=== PATIENT | female | born 1965 | race African-American/Black ===

== ENCOUNTER 2022-07-24 15:14 | Inpatient (IN) | payer OTHER, MEDICAID ==
[~2022-07-24] VITALS: Ht 165.1 cm; Wt 113.6 kg
[~2022-07-24 15:14] MED LIST: AMLO10TA80 PO; ASPI-1497 PO; LISI10TA26 PO; MULT-1146 PO
[2022-07-24] MEDS ORDERED: IPRATROPIUM/ALBUTEROL 0.5-3(2.5)MG/3ML NEB HHN ONE ×2 (15:30→18:30)
[2022-07-24] MEDS ORDERED: ASPIRIN 325MG EC TABLET PO ONE (15:30)
[2022-07-24] MEDS ORDERED: METHYLPREDNISOLONE SOD SUCC 125 MG/2 ML VIAL IV ONE (15:30)
[2022-07-24 15:52] LABS: CHLORIDE 101 mEq/L (98-107)
[2022-07-24 16:03] LABS: BASOPHILS % 0.6 % (0.0-2.0); EOSINOPHILS % 3.8 % (0.0-5.0); HEMATOCRIT. 39.2 % (36.0-48.0); HEMOGLOBIN. 12.2 g/dL (12.0-16.0); LYMPHOCYTES % 19.8 % (20.0-50.0); MEAN CORPUSCULAR HEMOGLOBIN 27.9 pg (28.0-32.0); MEAN CORPUSCULAR VOLUME 89.6 fL (81.0-99.0); MEAN PLATELET VOLUME 10.1 fl (7.4-10.4); MONOCYTES % 5.9 % (2.0-8.0); NEUTROPHILS % 69.9 % (40.0-76.0); PLATELET 296 x1000/uL (130-400); RED BLOOD CELL COUNT 4.38 mill/uL (4.2-5.4); RED CELL DISTRIBUTION WIDTH 15.5 % (11.6-14.6)
[2022-07-24] MEDS ORDERED: CEFTRIAXONE 1 G PREMIX 50 ML IV ONE (17:30)
[2022-07-24] MEDS ORDERED: MORPHINE SULFATE 2 MG/ML CPJ (NOT FOR IM USE) IV ONE (18:00)
[2022-07-24] MEDS ORDERED: ONDANSETRON HCL 4MG/2ML INJ IM ONE (18:00)
[2022-07-24 19:53] LABS: BG BASE EXCESS 6.3 mmol/L (-2.0-2.0); BG DEOXYHEMOGLOBIN 2.1 % (0.0-5.0); BG FRACTION INSPIRED OXYGEN 100; BG HCO3 ACT 35.5 mmol/L (22.0-26.0); BG METHEMOGLOBIN 0.4 % (0.0-1.5); BG OXYGEN SATURATION 97.9 % (92.0-98.5); BG OXYHEMOGLOBIN 96.5 % (94.0-97.0); BG PCO2 74.5 mmHg (35.0-45.0); BG PH 7.296 (7.350-7.450); BG PO2 111.2 mmHg (75.0-100.0); BG SAMPLE SITE RIGHT RADIAL; BG VENT MODE HIGH FLOW
[2022-07-24] MEDS ORDERED: IOHEXOL-350 100 ML BOTTLE ONE (20:06)
[2022-07-24] MEDS ORDERED: IPRATROPIUM/ALBUTEROL 0.5-3(2.5)MG/3ML NEB ONE (21:48)
[2022-07-24 22:20] VITALS: BP 150/90
[2022-07-25] VITALS: BP 133/79
[2022-07-25] MEDS ORDERED: IPRATROPIUM/ALBUTEROL 0.5-3(2.5)MG/3ML NEB HHN PRN (00:15)
[2022-07-25] MEDS ORDERED: CEFTRIAXONE 1 G PREMIX 50 ML IV SCH (00:15)
[2022-07-25] MEDS ORDERED: AZITHROMYCIN 500 MG in DEXT 5% WATER 250 ML IV SCH (00:15)
[2022-07-25] MEDS ORDERED: ONDANSETRON HCL 4MG/2ML INJ IV PRN (00:15)
[2022-07-25] MEDS ORDERED: ZOLPIDEM TARTRATE 5MG TABLET PO PRN (00:30)
[2022-07-25] MEDS ORDERED: IPRATROPIUM BROMIDE (0.02%) 0.5MG/2.5ML NEB HHN PRN (01:00)
[2022-07-25] MEDS ORDERED: ALBUTEROL (0.083%) 2.5MG/3ML NEB HHN PRN (01:00)
[2022-07-25 04:00] VITALS: BP 158/79
[2022-07-25] MEDS: METHYLPREDNISOLONE SOD SUCC 40 MG/ML VIAL IV SCH ×3 (05:21→17:12)
[2022-07-25] MEDS ORDERED: *PATIENT'S OWN MEDICATION STORAGE XX SCH (05:30)
[2022-07-25] MEDS: HYDROCODONE/ACETAMINOPHEN 5/325MG TABLET PO PRN ×2 (05:47→18:25)
[2022-07-25 07:55] LABS: BASOPHILS % 0.2 % (0.0-2.0); EOSINOPHILS % 0.1 % (0.0-5.0); HEMOGLOBIN. 11.6 g/dL (12.0-16.0); LYMPHOCYTES % 8.7 % (20.0-50.0); MEAN CORPUSCULAR HEMOGLOBIN 28.2 pg (28.0-32.0); MEAN CORPUSCULAR VOLUME 90.2 fL (81.0-99.0); MEAN PLATELET VOLUME 9.8 fl (7.4-10.4); MONOCYTES % 4.1 % (2.0-8.0); NEUTROPHILS % 86.9 % (40.0-76.0); PLATELET 279 x1000/uL (130-400); RED CELL DISTRIBUTION WIDTH 15.5 % (11.6-14.6)
[2022-07-25 08:00] VITALS: BP 145/79
[2022-07-25] MEDS: ENOXAPARIN 30MG/0.3ML SYR SUBCUT SCH ×2 (08:11→21:09)
[2022-07-25] MEDS: CEFTRIAXONE 1,000 MG in DEXTROSE 5% WATER 50 ML IV SCH (08:11)
[2022-07-25] MEDS: PANTOPRAZOLE SODIUM 40 MG/VIAL IV SCH (08:11)
[2022-07-25 08:25] LABS: BG CARBOXYHEMOGLOBIN 0.4 % (0.5-1.5); BG DEOXYHEMOGLOBIN 0.9 % (0.0-5.0); BG FRACTION INSPIRED OXYGEN 100; BG HCO3 ACT 31.2 mmol/L (22.0-26.0); BG METHEMOGLOBIN 0.1 % (0.0-1.5); BG OXYGEN SATURATION 99.1 % (92.0-98.5); BG OXYHEMOGLOBIN 98.6 % (94.0-97.0); BG PCO2 59.4 mmHg (35.0-45.0); BG PH 7.338 (7.350-7.450); BG PO2 180.5 mmHg (75.0-100.0); BG SAMPLE SITE RIGHT RADIAL; BG TOTAL HEMOGLOBIN 12.4 g/dL (12.0-18.0); BG VENT MODE HIGH FLOW
[2022-07-25 08:27] LABS: CHLORIDE 99 mEq/L (98-107)
[2022-07-25 08:42] LABS: HDL CHOLESTEROL 41 mg/dL (40-59); LDL CHOLESTEROL 143 mg/dL (5-100)
[2022-07-25] MEDS ORDERED: ENOXAPARIN 40MG/0.4ML SYR SUBCUT SCH (09:00)
[2022-07-25] MEDS: BUDESONIDE 0.5MG/2ML NEB HHN SCH ×2 (09:14→21:11)
[2022-07-25 12:00] VITALS: BP 140/71
[2022-07-25] MEDS ORDERED: IPRATROPIUM/ALBUTEROL 0.5-3(2.5)MG/3ML NEB HHN SCH (12:00)
[2022-07-25 16:00] VITALS: BP 143/75
[2022-07-25 17:23] LABS: CLARITY URINE CLEAR (CLEAR); COLOR URINE YELLOW (YELLOW); KETONES URINE NEGATIVE (NEGATIVE); LEUKOCYTE ESTERASE URINE NEGATIVE (NEGATIVE); NITRITE URINE NEGATIVE (NEGATIVE); OCCULT BLOOD URINE NEGATIVE (NEGATIVE); PH URINE 5.5 (4.5-8.0); PROTEIN URINE TRACE (NEGATIVE); SPECIFIC GRAVITY URINE 1.034 (1.005-1.030)
[2022-07-25 17:38] LABS: *AMPHETAMINES SCREEN URINE NEGATIVE (NEGATIVE); *BARBITURATES SCREEN URINE NEGATIVE (NEGATIVE); *BENZODIAZEPINES SCREEN URINE NEGATIVE (NEGATIVE); *COCAINE SCREEN URINE NEGATIVE (NEGATIVE); CANNABINOID URINE SCREEN NEGATIVE (NEGATIVE); METHADONE URINE SCREEN NEGATIVE (NEGATIVE); OPIATES URINE SCREEN PRESUMTIVE POSITIVE (NEGATIVE); PHENCYCLIDINE URINE SCREEN NEGATIVE (NEGATIVE)
[2022-07-25 20:00] VITALS: BP 144/82
[2022-07-25] MEDS: ALBUTEROL (0.083%) 2.5MG/3ML NEB HHN SCH (21:11)
[2022-07-25] MEDS: IPRATROPIUM BROMIDE (0.02%) 0.5MG/2.5ML NEB HHN SCH (21:11)
[2022-07-26] VITALS: BP 121/76
[2022-07-26] MEDS: METHYLPREDNISOLONE SOD SUCC 40 MG/ML VIAL IV SCH ×4 (00:11→17:07)
[2022-07-26] MEDS: ALBUTEROL (0.083%) 2.5MG/3ML NEB HHN SCH ×4 (03:38→20:46)
[2022-07-26] MEDS: IPRATROPIUM BROMIDE (0.02%) 0.5MG/2.5ML NEB HHN SCH ×4 (03:38→20:46)
[2022-07-26 08:00] VITALS: BP 130/81
[2022-07-26] MEDS: BUDESONIDE 0.5MG/2ML NEB HHN SCH ×2 (08:06→20:47)
[2022-07-26] MEDS: PANTOPRAZOLE SODIUM 40 MG/VIAL IV SCH (08:31)
[2022-07-26] MEDS: ENOXAPARIN 30MG/0.3ML SYR SUBCUT SCH ×2 (08:31→20:45)
[2022-07-26] MEDS: CEFTRIAXONE 1,000 MG in DEXTROSE 5% WATER 50 ML IV SCH (08:32)
[2022-07-26 12:00] VITALS: BP 134/58
[2022-07-26] MEDS ORDERED: NALOXONE HCL 0.4MG/ML VIAL IV PRN (14:00)
[2022-07-26] MEDS ORDERED: IBUPROFEN 400MG TABLET PO PRN (15:00)
[2022-07-26 16:00] VITALS: BP 139/78
[2022-07-26 20:00] VITALS: BP 137/72
[2022-07-27] VITALS: BP 124/59
[2022-07-27] MEDS: METHYLPREDNISOLONE SOD SUCC 40 MG/ML VIAL IV SCH ×4 (00:18→18:54)
[2022-07-27] MEDS: IPRATROPIUM BROMIDE (0.02%) 0.5MG/2.5ML NEB HHN SCH ×4 (01:50→21:05)
[2022-07-27] MEDS: ALBUTEROL (0.083%) 2.5MG/3ML NEB HHN SCH ×4 (01:50→21:05)
[2022-07-27] MEDS: HYDROCODONE/ACETAMINOPHEN 5/325MG TABLET PO PRN ×2 (02:26→16:18)
[2022-07-27 04:00] VITALS: BP 125/55
[2022-07-27 07:21] LABS: HEMATOCRIT. 33.9 % (36.0-48.0); HEMOGLOBIN. 10.8 g/dL (12.0-16.0); MEAN CORPUSCULAR HEMOGLOBIN 28.3 pg (28.0-32.0); MEAN CORPUSCULAR VOLUME 89.2 fL (81.0-99.0); PLATELET 251 x1000/uL (130-400)
[2022-07-27 07:47] LABS: CHLORIDE 98 mEq/L (98-107)
[2022-07-27] MEDS: CEFTRIAXONE 1,000 MG in DEXTROSE 5% WATER 50 ML IV SCH (09:32)
[2022-07-27] MEDS: FAMOTIDINE 20MG TABLET PO SCH ×2 (09:33→20:42)
[2022-07-27] MEDS: ENOXAPARIN 30MG/0.3ML SYR SUBCUT SCH ×2 (09:33→20:42)
[2022-07-27] MEDS: BUDESONIDE 0.5MG/2ML NEB HHN SCH ×2 (09:54→21:05)
[2022-07-27 12:00] VITALS: BP 133/83
[2022-07-27 12:43] LABS: PLATELET ESTIMATE NORMAL
[2022-07-27 16:00] VITALS: BP 160/86
[2022-07-27] MEDS: CLONIDINE 0.1MG TABLET PO PRN (16:21)
[2022-07-27 17:24] LABS: BG BASE EXCESS 6.8 mmol/L (-2.0-2.0); BG CARBOXYHEMOGLOBIN 0.5 % (0.5-1.5); BG FRACTION INSPIRED OXYGEN 60; BG HCO3 ACT 33.6 mmol/L (22.0-26.0); BG METHEMOGLOBIN 0.2 % (0.0-1.5); BG OXYHEMOGLOBIN 95.3 % (94.0-97.0); BG PCO2 58.3 mmHg (35.0-45.0); BG PH 7.378 (7.350-7.450); BG SAMPLE SITE RIGHT RADIAL; BG TOTAL HEMOGLOBIN 12.5 g/dL (12.0-18.0); BG VENT MODE HIGH FLOW
[2022-07-27 20:30] VITALS: BP 130/68
[2022-07-28] VITALS (7 sets, daily range): BP systolic 136–169; BP diastolic 64–84
[2022-07-28] MEDS: METHYLPREDNISOLONE SOD SUCC 40 MG/ML VIAL IV SCH ×4 (00:06→17:00)
[2022-07-28] MEDS: FAMOTIDINE 20MG TABLET PO SCH ×2 (09:03→20:43)
[2022-07-28] MEDS: CEFTRIAXONE 1,000 MG in DEXTROSE 5% WATER 50 ML IV SCH (09:03)
[2022-07-28] MEDS: ENOXAPARIN 30MG/0.3ML SYR SUBCUT SCH ×2 (09:04→20:43)
[2022-07-28] MEDS: ALBUTEROL (0.083%) 2.5MG/3ML NEB HHN SCH ×3 (09:12→21:57)
[2022-07-28] MEDS: IPRATROPIUM BROMIDE (0.02%) 0.5MG/2.5ML NEB HHN SCH ×3 (09:12→21:57)
[2022-07-28] MEDS: BUDESONIDE 0.5MG/2ML NEB HHN SCH (09:12)
[2022-07-28] MEDS: CLONIDINE 0.1MG TABLET PO PRN (20:43)
[2022-07-28] MEDS ORDERED: ATORVASTATIN CALCIUM 40MG TABLET PO SCH (21:00)
[2022-07-28] MEDS ORDERED: FLUT1DIS3 INH (22:03)
[2022-07-29] VITALS: BP 152/71
[2022-07-29] MEDS: ALBUTEROL (0.083%) 2.5MG/3ML NEB HHN SCH ×3 (03:13→14:14)
[2022-07-29] MEDS: IPRATROPIUM BROMIDE (0.02%) 0.5MG/2.5ML NEB HHN SCH ×3 (03:13→14:14)
[2022-07-29 04:00] VITALS: BP 149/86
[2022-07-29 08:00] VITALS: BP 158/88
[2022-07-29] MEDS ORDERED: METHYLPREDNISOLONE SOD SUCC 40 MG/ML VIAL IV SCH (09:00)
[2022-07-29] MEDS: CEFTRIAXONE 1,000 MG in DEXTROSE 5% WATER 50 ML IV SCH (09:00)
[2022-07-29] MEDS: FAMOTIDINE 20MG TABLET PO SCH (09:00)
[2022-07-29] MEDS: ENOXAPARIN 30MG/0.3ML SYR SUBCUT SCH (09:00)
[2022-07-29] MEDS ORDERED: LIP40 PO (10:29)
[2022-07-29] MEDS ORDERED: ALBU18HF2 IH (10:29)
[2022-07-29] MEDS ORDERED: FAMO20TA8 PO (10:29)
[2022-07-29] MEDS ORDERED: P20 MT (10:29)
[2022-07-29 12:00] VITALS: BP 151/84
[2022-07-29 14:44] VITALS: BP 112/52
== END 2022-07-29 17:17 | disposition home or self-care (01) | DRG 193 ==
LOC: ER 15:18 → 7WST 18:46
PROVIDERS: ADMIT Internal Medicine; ATTEND Internal Medicine
PROC: 5A0935A Assistance with Respiratory Ventilation, Less than 24 Consecutive Hours, High Flow/Velocity Cannula (ICD-10-PCS; principal; 2022-07-24)
PROC: 5A09357 Assistance with Respiratory Ventilation, Less than 24 Consecutive Hours, Continuous Positive Airway Pressure (ICD-10-PCS; 2022-07-24)
PROC: 5A0935A Assistance with Respiratory Ventilation, Less than 24 Consecutive Hours, High Flow/Velocity Cannula (ICD-10-PCS; 2022-07-25)
PROC: 5A0935A Assistance with Respiratory Ventilation, Less than 24 Consecutive Hours, High Flow/Velocity Cannula (ICD-10-PCS; 2022-07-26)
PROC: 5A0935A Assistance with Respiratory Ventilation, Less than 24 Consecutive Hours, High Flow/Velocity Cannula (ICD-10-PCS; 2022-07-27)
PROC: 5A0935A Assistance with Respiratory Ventilation, Less than 24 Consecutive Hours, High Flow/Velocity Cannula (ICD-10-PCS; 2022-07-28)
DX: J15.9 Unspecified bacterial pneumonia (principal); I50.33 Acute on chronic diastolic (congestive) heart failure; J96.00 Acute respiratory failure, unspecified whether with hypoxia or hypercapnia; J44.1 Chronic obstructive pulmonary disease with (acute) exacerbation; E44.1 Mild protein-calorie malnutrition; E87.29 Other acidosis; J44.0 Chronic obstructive pulmonary disease with (acute) lower respiratory infection; Z20.822 Contact with and (suspected) exposure to COVID-19; R73.9 Hyperglycemia, unspecified; E78.5 Hyperlipidemia, unspecified; M25.511 Pain in right shoulder; I11.0 Hypertensive heart disease with heart failure; Z79.82 Long term (current) use of aspirin; Z68.39 Body mass index [BMI] 39.0-39.9, adult
CPT/HCPCS: 36415; 36600; 71045; 71275; 73030; 80048; 80053; 80061; 80305; 81003; 82375; 82805; 83605; 83880; 84484; 85025; 87070; 87426; 87804; 93005; 94640; 97162; 97166; 99291; C9113; C9803; J0696; J1650; J2270; J2405; J2920; J2930; J7060; J7626; Q9967

== ENCOUNTER 2024-04-17 09:45 | Inpatient (IN) | payer BC, MEDICAID ==
[~2024-04-17] VITALS: Ht 152.4 cm; Wt 120.3 kg
[~2024-04-17 09:45] MED LIST changes: +ALBU18HF2 IH; +FAMO20TA8 PO; +FLUT1DIS3 INH; +LEVO-65 MT; +LIP40 PO; +METH4TAB95 MT; -MULT-1146 PO
[2024-04-17] MEDS: ALBUTEROL (0.083%) 2.5MG/3ML NEB HHN STA (11:47)
[2024-04-17] MEDS: IPRATROPIUM BROMIDE (0.02%) 0.5MG/2.5ML NEB HHN STA (11:47)
[2024-04-17] MEDS: METHYLPREDNISOLONE SOD SUCC 125MG/2ML (ACT-O-VIAL) IV STA (12:13)
[2024-04-17 12:35] VITALS: PULSE 110; RESP 24; O2SAT 92
[2024-04-17 13:05] LABS: CHLORIDE 107 mEq/L (98-107); POTASSIUM 3.7 mEq/L (3.5-5.1); SODIUM 144 mEq/L (136-145)
[2024-04-17 13:06] LABS: CALCIUM 9.7 mg/dL (8.7-10.4); CARBON DIOXIDE 34 mEq/L (21-32)
[2024-04-17 13:11] LABS: CREATININE 0.8 mg/dL (0.6-1.0); GLUCOSE 119 mg/dL (70-105); UREA NITROGEN BLOOD 9 mg/dL (9-23)
[2024-04-17 13:12] LABS: TROPONIN I HIGH SENSITIVITY 15 ng/L (3.0-34)
[2024-04-17 13:18] LABS: INR 1.1; PROTHROMBIN TIME 12.4 sec (9.6-11.0)
[2024-04-17] MEDS ORDERED: FUROSEMIDE 20MG/2ML VIAL IVP ONE (15:00)
[2024-04-17 15:12] LABS: EOSINOPHILS % 3.3 % (0.0-5.0); HEMATOCRIT. 38.4 % (36.0-48.0); HEMOGLOBIN. 11.6 g/dL (12.0-16.0); LYMPHOCYTES % 8.5 % (20.0-50.0); MEAN CORPUSCULAR HEMOGLOBIN 27.7 pg (28.0-32.0); MEAN CORPUSCULAR HGB CONC 30.1 g/dL (31.0-37.0); MEAN CORPUSCULAR VOLUME 91.8 fL (81.0-99.0); MONOCYTES % 5.9 % (2.0-8.0); NEUTROPHILS % 81.3 % (40.0-76.0); RED BLOOD CELL COUNT 4.18 mill/uL (4.2-5.4); RED CELL DISTRIBUTION WIDTH 17.5 % (11.6-14.6); WHITE BLOOD COUNT 11.6 x1000/uL (4.5-11.0)
[2024-04-17 15:21] LABS: DIFFERENTIAL COMMENT 1
[2024-04-17] MEDS: FUROSEMIDE 40MG/4ML VIAL IVP NR (16:03)
[2024-04-17 17:00] LABS: MEAN PLATELET VOLUME 9.5 fl (7.4-10.4); PLATELET 200 x1000/uL (130-400)
[2024-04-17] MEDS ORDERED: NALOXONE HCL 0.4MG/ML VIAL IV PRN (19:45)
[2024-04-17] MEDS ORDERED: ZOLPIDEM TARTRATE 5MG TABLET PO PRN (20:15)
[2024-04-17] MEDS ORDERED: CLONIDINE 0.1MG TABLET PO PRN (20:15)
[2024-04-17] MEDS ORDERED: ONDANSETRON HCL 4MG/2ML INJ IV PRN (20:15)
[2024-04-17] MEDS ORDERED: ACETAMINOPHEN 325MG TABLET PO PRN (20:15)
[2024-04-17] MEDS: IPRATROPIUM/ALBUTEROL 0.5-3(2.5)MG/3ML NEB HHN SCH (20:27)
[2024-04-17 20:44] VITALS: PULSE 81; RESP 20; O2SAT 96
[2024-04-17] MEDS: METHYLPREDNISOLONE SOD SUCC 40MG/ML (ACT-O-VIAL) IV SCH (22:55)
[2024-04-17] MEDS: FUROSEMIDE 40MG/4ML VIAL IVP SCH (22:55)
[2024-04-17] MEDS: ATORVASTATIN CALCIUM 40MG TABLET PO SCH (22:55)
[2024-04-18] VITALS (13 sets, daily range): BP systolic 90–148; BP diastolic 54–82; PULSE 76–114; RESP 17–25; TEMP 36.3918–36.78072; O2SAT 91–99
[2024-04-18 00:47] LABS: TROPONIN I HIGH SENSITIVITY 16 ng/L (3.0-34)
[2024-04-18 00:58] LABS: CREATINE KINASE 39 IU/L (34-145)
[2024-04-18 07:17] LABS: CARBON DIOXIDE 35 mEq/L (21-32); CHLORIDE 105 mEq/L (98-107); POTASSIUM 4.1 mEq/L (3.5-5.1); SODIUM 143 mEq/L (136-145)
[2024-04-18 07:18] LABS: CALCIUM 9.6 mg/dL (8.7-10.4)
[2024-04-18 07:20] LABS: HEMATOCRIT. 35.4 % (36.0-48.0); HEMOGLOBIN. 10.9 g/dL (12.0-16.0); MEAN CORPUSCULAR HGB CONC 30.9 g/dL (31.0-37.0); MEAN CORPUSCULAR VOLUME 90.7 fL (81.0-99.0); MEAN PLATELET VOLUME 9.6 fl (7.4-10.4); PLATELET 202 x1000/uL (130-400); WHITE BLOOD COUNT 5.9 x1000/uL (4.5-11.0)
[2024-04-18 07:23] LABS: CREATININE 0.9 mg/dL (0.6-1.0); GLUCOSE 147 mg/dL (70-105); UREA NITROGEN BLOOD 12 mg/dL (9-23)
[2024-04-18 07:24] LABS: TROPONIN I HIGH SENSITIVITY 17 ng/L (3.0-34)
[2024-04-18 07:26] LABS: CREATINE KINASE 32 IU/L (34-145)
[2024-04-18 07:53] LABS: DIFFERENTIAL COMMENT 1
[2024-04-18] MEDS: AMLODIPINE 10MG TABLET PO SCH (09:00)
[2024-04-18] MEDS: LISINOPRIL 10MG TABLET PO SCH (09:00)
[2024-04-18] MEDS: ASPIRIN 81MG EC TABLET PO SCH (09:47)
[2024-04-18] MEDS: ENOXAPARIN 30MG/0.3ML SYR SUBCUT SCH (09:51)
[2024-04-18 15:40] LABS: PLATELET ESTIMATE NORMAL
[2024-04-18] MEDS: MORPHINE SULFATE 2 MG/ML INJ (NOT FOR IM USE) IV PRN (21:52)
[2024-04-18] MEDS: THEOPHYLLINE ANHYDROUS 80 MG/15 ML 120ML PO SCH (22:10)
[2024-04-19] VITALS (14 sets, daily range): BP systolic 105–157; BP diastolic 62–110; PULSE 99–116; RESP 17–24; TEMP 36.3918–37.28076; O2SAT 87–99
[2024-04-19] MEDS: MONTELUKAST SODIUM 10MG TABLET PO SCH (19:46)
[2024-04-19] MEDS: FAMOTIDINE 20MG/2ML VIAL IV SCH (22:35)
[2024-04-19] MEDS: METHYLPREDNISOLONE SOD SUCC 125MG/2ML (ACT-O-VIAL) IV SCH (22:35)
[2024-04-19] MEDS: FLUTICASONE PROPIONATE 50MCG/SPRAY BOTTLE BOTHNSTRLS SCH (22:36)
[2024-04-19] MEDS: LORATADINE 10MG TABLET PO SCH (22:36)
[2024-04-20] VITALS (15 sets, daily range): BP systolic 96–137; BP diastolic 62–76; PULSE 98–116; RESP 12–40; TEMP 36.22512–37.05852; O2SAT 91–100
[2024-04-20 08:00] LABS: CHLORIDE 95 mEq/L (98-107); POTASSIUM 4.2 mEq/L (3.5-5.1); SODIUM 138 mEq/L (136-145)
[2024-04-20 08:02] LABS: CALCIUM 9.4 mg/dL (8.7-10.4)
[2024-04-20 08:06] LABS: CREATININE 0.7 mg/dL (0.6-1.0); GLUCOSE 114 mg/dL (70-105); UREA NITROGEN BLOOD 17 mg/dL (9-23)
[2024-04-20 09:06] LABS: CARBON DIOXIDE > 40 mEq/L (21-32)
[2024-04-20 10:04] LABS: BG BASE EXCESS 11.8 mmol/L (-2.0-3.0); BG CARBOXYHEMOGLOBIN 0.6 % (0.5-1.5); BG FRACTION INSPIRED OXYGEN 100; BG HCO3 ACT 39.2 mmol/L (21.0-28.0); BG METHEMOGLOBIN 0.3 % (0.5-1.5); BG OXYHEMOGLOBIN 98.1 % (94.0-98.0); BG PCO2 66.2 mmHg (32.0-45.0); BG PO2 140.5 mmHg (83.0-108.0); BG SAMPLE SITE RIGHT RADIAL; BG TOTAL HEMOGLOBIN 11.8 g/dL (12.0-16.0); BG VENT MODE HIGH FLOW
[2024-04-21] VITALS (14 sets, daily range): BP systolic 97–146; BP diastolic 46–82; PULSE 103–119; RESP 17–25; TEMP 36.61404–37.16964; O2SAT 88–100
[2024-04-21 07:02] LABS: CARBON DIOXIDE 40 mEq/L (21-32); CHLORIDE 93 mEq/L (98-107); POTASSIUM 3.9 mEq/L (3.5-5.1); SODIUM 136 mEq/L (136-145)
[2024-04-21 07:08] LABS: CREATININE 0.9 mg/dL (0.6-1.0); GLUCOSE 140 mg/dL (70-105); UREA NITROGEN BLOOD 18 mg/dL (9-23)
[2024-04-21 07:16] LABS: HEMATOCRIT. 33.5 % (36.0-48.0); HEMOGLOBIN. 10.7 g/dL (12.0-16.0); MEAN CORPUSCULAR HEMOGLOBIN 28.7 pg (28.0-32.0); MEAN CORPUSCULAR HGB CONC 32.1 g/dL (31.0-37.0); MEAN CORPUSCULAR VOLUME 89.4 fL (81.0-99.0); MEAN PLATELET VOLUME 9.8 fl (7.4-10.4); PLATELET 199 x1000/uL (130-400); RED BLOOD CELL COUNT 3.75 mill/uL (4.2-5.4); RED CELL DISTRIBUTION WIDTH 16.3 % (11.6-14.6); WHITE BLOOD COUNT 8.1 x1000/uL (4.5-11.0)
[2024-04-21 07:30] LABS: DIFFERENTIAL COMMENT 1
[2024-04-22] VITALS (15 sets, daily range): BP systolic 105–124; BP diastolic 66–71; PULSE 99–118; RESP 17–25; TEMP 36.44736–37.33632; O2SAT 87–98
[2024-04-22 11:07] LABS: ANISOCYTOSIS 1+; PLATELET ESTIMATE NORMAL
[2024-04-23] VITALS (17 sets, daily range): BP systolic 98–127; BP diastolic 62–81; PULSE 106–126; RESP 16–27; TEMP 36.33624–36.9474; O2SAT 86–96
[2024-04-23] MEDS: ZOLPIDEM TARTRATE 5MG TABLET PO PRN (00:37)
[2024-04-23 09:03] LABS: HEMATOCRIT. 36.8 % (36.0-48.0); HEMOGLOBIN. 11.7 g/dL (12.0-16.0); MEAN CORPUSCULAR HEMOGLOBIN 28.1 pg (28.0-32.0); MEAN CORPUSCULAR HGB CONC 31.7 g/dL (31.0-37.0); MEAN CORPUSCULAR VOLUME 88.6 fL (81.0-99.0); MEAN PLATELET VOLUME 9.8 fl (7.4-10.4); PLATELET 234 x1000/uL (130-400); RED BLOOD CELL COUNT 4.15 mill/uL (4.2-5.4); RED CELL DISTRIBUTION WIDTH 16.5 % (11.6-14.6)
[2024-04-23 09:09] LABS: CHLORIDE 92 mEq/L (98-107); POTASSIUM 3.8 mEq/L (3.5-5.1); SODIUM 134 mEq/L (136-145)
[2024-04-23 09:11] LABS: CALCIUM 8.9 mg/dL (8.7-10.4)
[2024-04-23 09:13] LABS: DIFFERENTIAL COMMENT 1
[2024-04-23 09:15] LABS: CREATININE 0.9 mg/dL (0.6-1.0); GLUCOSE 167 mg/dL (70-105)
[2024-04-23 09:16] LABS: UREA NITROGEN BLOOD 22 mg/dL (9-23)
[2024-04-23 09:18] LABS: PHOSPHORUS 3.1 mg/dL (2.5-4.9)
[2024-04-23 09:23] LABS: CARBON DIOXIDE > 40 mEq/L (21-32)
[2024-04-23 10:31] LABS: ANISOCYTOSIS 1+; PLATELET ESTIMATE NORMAL
[2024-04-23] MEDS: DILTIAZEM HCL 30MG TABLET PO SCH (18:32)
[2024-04-24] VITALS (14 sets, daily range): BP systolic 99–126; BP diastolic 15–72; PULSE 103–116; RESP 18–25; TEMP 36.50292–36.9474; O2SAT 88–95
[2024-04-25] VITALS (16 sets, daily range): BP systolic 104–127; BP diastolic 48–72; PULSE 89–109; RESP 17–24; TEMP 36.44736–37.28076; O2SAT 85–100
[2024-04-25 08:43] LABS: HEMATOCRIT. 37.3 % (36.0-48.0); HEMOGLOBIN. 12.1 g/dL (12.0-16.0); MEAN CORPUSCULAR HEMOGLOBIN 28.6 pg (28.0-32.0); MEAN CORPUSCULAR HGB CONC 32.4 g/dL (31.0-37.0); MEAN CORPUSCULAR VOLUME 88.1 fL (81.0-99.0); MEAN PLATELET VOLUME 9.4 fl (7.4-10.4); PLATELET 213 x1000/uL (130-400); RED BLOOD CELL COUNT 4.23 mill/uL (4.2-5.4); RED CELL DISTRIBUTION WIDTH 16.2 % (11.6-14.6); WHITE BLOOD COUNT 10.6 x1000/uL (4.5-11.0)
[2024-04-25 08:47] LABS: DIFFERENTIAL COMMENT 1
[2024-04-25 09:00] LABS: CHLORIDE 90 mEq/L (98-107); POTASSIUM 3.6 mEq/L (3.5-5.1); SODIUM 134 mEq/L (136-145)
[2024-04-25 09:01] LABS: CALCIUM 8.6 mg/dL (8.7-10.4)
[2024-04-25 09:04] LABS: CREATININE 0.8 mg/dL (0.6-1.0)
[2024-04-25 09:06] LABS: GLUCOSE 139 mg/dL (70-105); UREA NITROGEN BLOOD 19 mg/dL (9-23)
[2024-04-25 09:28] LABS: CARBON DIOXIDE > 40 mEq/L (21-32)
[2024-04-25] MEDS: IPRATROPIUM/ALBUTEROL 0.5-3(2.5)MG/3ML NEB HHN PRN (09:49)
[2024-04-25 11:11] LABS: BG BASE EXCESS 16.1 mmol/L (-2.0-3.0); BG CARBOXYHEMOGLOBIN 1.1 % (0.5-1.5); BG DEOXYHEMOGLOBIN 7.1 % (0.0-5.0); BG FRACTION INSPIRED OXYGEN 65; BG HCO3 ACT 43.2 mmol/L (21.0-28.0); BG METHEMOGLOBIN 0.3 % (0.5-1.5); BG OXYGEN SATURATION 92.8 % (94.0-98.0); BG OXYHEMOGLOBIN 91.5 % (94.0-98.0); BG PCO2 62.8 mmHg (32.0-45.0); BG PH 7.455 (7.350-7.450); BG PO2 62.5 mmHg (83.0-108.0); BG SAMPLE SITE RIGHT RADIAL; BG TOTAL HEMOGLOBIN 13.7 g/dL (12.0-16.0); BG VENT MODE HIGH FLOW
[2024-04-25 17:14] LABS: PLATELET ESTIMATE NORMAL
[2024-04-26] VITALS (18 sets, daily range): BP systolic 107–122; BP diastolic 47–83; PULSE 93–117; RESP 18–29; TEMP 36.22512–37.2252; O2SAT 86–96
[2024-04-26 07:13] LABS: CALCIUM 8.4 mg/dL (8.7-10.4); CHLORIDE 89 mEq/L (98-107); POTASSIUM 3.5 mEq/L (3.5-5.1); SODIUM 134 mEq/L (136-145)
[2024-04-26 07:19] LABS: CREATININE 0.8 mg/dL (0.6-1.0); GLUCOSE 137 mg/dL (70-105); UREA NITROGEN BLOOD 20 mg/dL (9-23)
[2024-04-26 07:49] LABS: HEMATOCRIT. 39.2 % (36.0-48.0); HEMOGLOBIN. 12.4 g/dL (12.0-16.0); MEAN CORPUSCULAR HGB CONC 31.6 g/dL (31.0-37.0); MEAN CORPUSCULAR VOLUME 88.6 fL (81.0-99.0); MEAN PLATELET VOLUME 9.4 fl (7.4-10.4); PLATELET 211 x1000/uL (130-400); RED BLOOD CELL COUNT 4.42 mill/uL (4.2-5.4); RED CELL DISTRIBUTION WIDTH 16.7 % (11.6-14.6); WHITE BLOOD COUNT 11.4 x1000/uL (4.5-11.0)
[2024-04-26 08:23] LABS: CARBON DIOXIDE > 40 mEq/L (21-32)
[2024-04-26 08:51] LABS: DIFFERENTIAL COMMENT 1
[2024-04-26 10:43] LABS: BG CARBOXYHEMOGLOBIN 1.1 % (0.5-1.5); BG FRACTION INSPIRED OXYGEN 60; BG HCO3 ACT 39.2 mmol/L (21.0-28.0); BG METHEMOGLOBIN 0.3 % (0.5-1.5); BG OXYGEN SATURATION 94.9 % (94.0-98.0); BG OXYHEMOGLOBIN 93.6 % (94.0-98.0); BG PCO2 56.2 mmHg (32.0-45.0); BG PH 7.461 (7.350-7.450); BG SAMPLE SITE RIGHT RADIAL; BG TOTAL HEMOGLOBIN 13.5 g/dL (12.0-16.0); BG VENT MODE HIGH FLOW
[2024-04-26 16:24] LABS: PLATELET ESTIMATE NORMAL
[2024-04-27] VITALS (15 sets, daily range): BP systolic 100–119; BP diastolic 58–88; PULSE 92–114; RESP 16–25; TEMP 36.33624–37.16964; O2SAT 90–96
[2024-04-27 07:41] LABS: BG BASE EXCESS 19.2 mmol/L (-2.0-3.0); BG DEOXYHEMOGLOBIN 5.4 % (0.0-5.0); BG FRACTION INSPIRED OXYGEN 40; BG HCO3 ACT 45.3 mmol/L (21.0-28.0); BG METHEMOGLOBIN 0.3 % (0.5-1.5); BG OXYGEN SATURATION 94.5 % (94.0-98.0); BG OXYHEMOGLOBIN 93.3 % (94.0-98.0); BG PCO2 55.4 mmHg (32.0-45.0); BG PO2 66.5 mmHg (83.0-108.0); BG SAMPLE SITE RIGHT RADIAL; BG TOTAL HEMOGLOBIN 14.6 g/dL (12.0-16.0); BG TOTAL RESPIRATORY RATE 22 b/min; BG VENT MODE MASK - BIPAP
[2024-04-28] VITALS (16 sets, daily range): BP systolic 95–138; BP diastolic 60–115; PULSE 96–114; RESP 17–23; TEMP 36.33624–36.89184; O2SAT 87–98
[2024-04-28 06:10] LABS: HEMATOCRIT 40.1 % (36.0-48.0); HEMOGLOBIN 12.9 g/dL (12.0-16.0); MEAN CORPUSCULAR HEMOGLOBIN 28.4 pg (28.0-32.0); MEAN CORPUSCULAR HGB CONC 32.3 g/dL (31.0-37.0); PLATELET 218 x1000/uL (130-400); RED BLOOD CELL COUNT 4.55 mill/uL (4.2-5.4); RED CELL DISTRIBUTION WIDTH 16.4 % (11.6-14.6); WHITE BLOOD COUNT 13.7 x1000/uL (4.5-11.0)
[2024-04-28 06:18] LABS: CHLORIDE 86 mEq/L (98-107); POTASSIUM 3.4 mEq/L (3.5-5.1); SODIUM 131 mEq/L (136-145)
[2024-04-28 06:19] LABS: CALCIUM 8.7 mg/dL (8.7-10.4)
[2024-04-28 06:23] LABS: CREATININE 0.7 mg/dL (0.6-1.0)
[2024-04-28 06:24] LABS: GLUCOSE 148 mg/dL (70-105); UREA NITROGEN BLOOD 20 mg/dL (9-23)
[2024-04-28 06:41] LABS: CARBON DIOXIDE > 40 mEq/L (21-32)
[2024-04-29] VITALS (14 sets, daily range): BP systolic 108–128; BP diastolic 52–70; PULSE 97–108; RESP 16–23; TEMP 36.16956–36.72516; O2SAT 92–99
[2024-04-29] MEDS: POTASSIUM CHLORIDE 20MEQ TABLET SR PO NR (12:30)
== END 2024-04-29 19:00 | DRG 291 ==
LOC: ER 09:49 → EDBEDREQ 17:04 → EDBEDREQTM 17:04 → 7WST 22:38 → 5EST 04-18 16:01
PROVIDERS: ADMIT Internal Medicine; ATTEND Internal Medicine
PROC: 5A09357 Assistance with Respiratory Ventilation, Less than 24 Consecutive Hours, Continuous Positive Airway Pressure (ICD-10-PCS; principal; 2024-04-18)
PROC: 5A09357 Assistance with Respiratory Ventilation, Less than 24 Consecutive Hours, Continuous Positive Airway Pressure (ICD-10-PCS; 2024-04-19)
PROC: 5A0955A Assistance with Respiratory Ventilation, Greater than 96 Consecutive Hours, High Flow/Velocity Cannula (ICD-10-PCS; 2024-04-19)
PROC: 5A0935A Assistance with Respiratory Ventilation, Less than 24 Consecutive Hours, High Flow/Velocity Cannula (ICD-10-PCS; 2024-04-25)
PROC: 5A09357 Assistance with Respiratory Ventilation, Less than 24 Consecutive Hours, Continuous Positive Airway Pressure (ICD-10-PCS; 2024-04-26)
PROC: 5A0935A Assistance with Respiratory Ventilation, Less than 24 Consecutive Hours, High Flow/Velocity Cannula (ICD-10-PCS; 2024-04-26)
PROC: 5A09357 Assistance with Respiratory Ventilation, Less than 24 Consecutive Hours, Continuous Positive Airway Pressure (ICD-10-PCS; 2024-04-27)
PROC: 5A0935A Assistance with Respiratory Ventilation, Less than 24 Consecutive Hours, High Flow/Velocity Cannula (ICD-10-PCS; 2024-04-27)
PROC: 5A09357 Assistance with Respiratory Ventilation, Less than 24 Consecutive Hours, Continuous Positive Airway Pressure (ICD-10-PCS; 2024-04-28)
PROC: 5A09357 Assistance with Respiratory Ventilation, Less than 24 Consecutive Hours, Continuous Positive Airway Pressure (ICD-10-PCS; 2024-04-29)
PROC: 5A0935A Assistance with Respiratory Ventilation, Less than 24 Consecutive Hours, High Flow/Velocity Cannula (ICD-10-PCS; 2024-04-29)
DX: I11.0 Hypertensive heart disease with heart failure (principal); I50.31 Acute diastolic (congestive) heart failure; J96.21 Acute and chronic respiratory failure with hypoxia; J96.22 Acute and chronic respiratory failure with hypercapnia; J44.1 Chronic obstructive pulmonary disease with (acute) exacerbation; J98.4 Other disorders of lung; F41.9 Anxiety disorder, unspecified; I87.2 Venous insufficiency (chronic) (peripheral); D64.9 Anemia, unspecified; I27.20 Pulmonary hypertension, unspecified; E78.00 Pure hypercholesterolemia, unspecified; Z86.11 Personal history of tuberculosis; Z99.81 Dependence on supplemental oxygen
CPT/HCPCS: 36415; 36600; 71045; 80048; 82375; 82550; 82805; 83735; 83880; 84100; 84145; 84484; 85025; 85027; 86850; 86900; 93005; 93970; 94640; 94660; 97162; 99285; J1650; J1940; J2270; J2919; J2920; J3490